=== PATIENT | female | born 1935 | race Caucasian/White ===

== ENCOUNTER 2017-12-22 18:05 | Inpatient (IN) | payer OTHER ==
[~2017-12-22] VITALS: Ht 162.6 cm; Wt 90.5 kg
[~2017-12-22 18:05] MED LIST: ASCORBIC ACID500 M3 PO; B-100 COMPLEX1 EACH PO; BLOOD THINNER PO; CALCIUM600 MG PO; CENTRUM COMPLE1 EACH PO; CHLORZOXAZONE500 MG PO; CORDARONE200 MG PO; CYMBALTA60 MG PO; DARVOCET-N 1001 EACH PO; ELIQUIS5 MG PO; FISH OIL 1,0001 EAC7 PO; FLEXERIL5 MG PO; LASIX40 MG PO; LIDODERM 5% P1 PATCH PO; LISINOPRIL20 MG PO; NORCO 10/3251 TABLET PO; NORCO 5/3251 TABLET PO; PRAVASTATIN SOD80 MG PO; PROBIOTIC1 EAC1 PO; PROZAC20 MG PO; RESTASIS 01 DROP/0.4 BOTH EYES; STRESSTABS1 EACH PO; TOPROL XL50 MG PO; ZESTRIL,PRINIVI20 MG PO; ZOLOFT50 MG PO
[2017-12-22 18:58] LABS: BASOPHIL (%) 0.4 % (0-1); EOSINOPHIL (%) 2.5 % (0-5); EOSINOPHIL COUNT 0.2 K/uL (0-0.3); HEMATOCRIT 32.5 % (36.0-46.0); IMMATURE GRANULOCYTE (%) 0.2 % (0.0-0.7); LYMPHOCYTE COUNT 1.4 K/uL (1.0-2.8); MCH 31.3 PG (29.0-34.0); MCHC 34.8 G/DL (30.0-36.0); MONOCYTE COUNT 1.1 K/uL (0-0.8); NEUTROPHIL (%) 66.9 % (45-76); NEUTROPHIL COUNT 5.6 K/uL (1.8-6.4); PLATELET COUNT 253 K/uL (156-360); RBC DIS.WIDTH-CV 12.9 % (11.8-14.6); WHITE BLOOD COUNT 8.4 K/uL (4.1-10.2)
[2017-12-22 19:07] LABS: CHLORIDE 99 mEq/L (99-109); POTASSIUM 4.6 mEq/L (3.7-5.4); SODIUM 134 mEq/L (136-147)
[2017-12-22 19:08] LABS: GLUCOSE 91 mg/dL (70-99); HEMOGLOBIN 11.3 G/DL (11.9-15.5); RED BLOOD COUNT 3.61 M/uL (3.80-5.20)
[2017-12-22 19:12] LABS: CREATININE 0.7 mg/dL (0.6-1.3); GFR ESTIMATE (CALCULATED) > 59 mL/min/
[2017-12-22 19:13] LABS: UREA NITROGEN (BUN) 25 mg/dL (9-23)
[2017-12-22] MEDS ORDERED: CORDARONE200 MG PO (19:30)
[2017-12-22] MEDS ORDERED: KEFLEX500 MG PO (19:33)
[2017-12-22] MEDS ORDERED: CYMBALTA20 MG PO (19:33)
[2017-12-22] MEDS ORDERED: BACTROBAN OINTM22 GM TP (19:34)
[2017-12-22] MEDS ORDERED: STRESS B-COMPL1 EACH PO (19:35)
[2017-12-22] MEDS ORDERED: METOLAZONE5 MG PO (19:35)
[2017-12-22] MEDS ORDERED: LEG CRAMPS PO (19:36)
[2017-12-22] MEDS ORDERED: ZANAFLEX4 M1 PO (19:37)
[2017-12-23 00:41] VITALS: BP 182/78
[2017-12-23 05:54] LABS: BASOPHIL (%) 0.5 % (0-1); EOSINOPHIL (%) 3.5 % (0-5); EOSINOPHIL COUNT 0.2 K/uL (0-0.3); HEMATOCRIT 29.8 % (36.0-46.0); HEMOGLOBIN 9.9 G/DL (11.9-15.5); IMMATURE GRANULOCYTE (%) 0.3 % (0.0-0.7); LYMPHOCYTE (%) 24.5 % (15-42); LYMPHOCYTE COUNT 1.6 K/uL (1.0-2.8); MCH 30.7 PG (29.0-34.0); MCHC 33.2 G/DL (30.0-36.0); MCV 92.3 FL (83-99); MONOCYTE (%) 14.2 % (3-12); MONOCYTE COUNT 0.9 K/uL (0-0.8); NEUTROPHIL COUNT 3.8 K/uL (1.8-6.4); PLATELET COUNT 247 K/uL (156-360); RBC DIS.WIDTH-SD 43.4 % (39-53); RED BLOOD COUNT 3.23 M/uL (3.80-5.20); WHITE BLOOD COUNT 6.6 K/uL (4.1-10.2)
[2017-12-23 06:22] LABS: CHLORIDE 102 MEQ/L (99-109); CREATININE 0.7 MG/DL (0.6-1.3); GFR ESTIMATE (CALCULATED) > 59 mL/min/; GLUCOSE 105 mg/dL (70-99); POTASSIUM 4.1 MEQ/L (3.7-5.4); SODIUM 135 MEQ/L (136-147); UREA NITROGEN (BUN) 19 mg/dL (9-23)
[2017-12-23 08:00] VITALS: BP 143/73
[2017-12-23 10:13] LABS: APPEARANCE SL.HAZY ((CLEAR)); BILIRUBIN NEGATIVE; BLOOD SMALL; COLOR YELLOW ((YELLOW)); GLUCOSE (STRIP) NEGATIVE; KETONES NEGATIVE; LEUKOCYTES NEGATIVE; NITRITE NEGATIVE; PROTEIN (STRIP) 30; SPECIFIC GRAVITY 1.017 (1.000-1.030); UROBILINOGEN 0.2 MG/DL (0.2-1.0)
[2017-12-23 10:28] LABS: BACTERIA RARE /HPF; EPITHELIAL CELLS RARE /HPF; HYALINE CASTS 0-5 /LPF; MUCUS TRACE /LPF; RED BLOOD CELLS 40-50 /HPF (0-5); UCUL ADDED? NO; WHITE BLOOD CELLS 0-5 /HPF (0-5)
[2017-12-23 11:43] VITALS: BP 161/68
[2017-12-23 15:30] VITALS: BP 134/59
[2017-12-23 19:56] VITALS: BP 187/79
[2017-12-23 23:49] VITALS: BP 146/65
[2017-12-24 06:37] LABS: BASOPHIL (%) 0.4 % (0-1); EOSINOPHIL (%) 2.6 % (0-5); EOSINOPHIL COUNT 0.2 K/uL (0-0.3); HEMATOCRIT 29.9 % (36.0-46.0); HEMOGLOBIN 9.8 G/DL (11.9-15.5); IMMATURE GRANULOCYTE (%) 0.4 % (0.0-0.7); LYMPHOCYTE (%) 19.9 % (15-42); LYMPHOCYTE COUNT 1.4 K/uL (1.0-2.8); MCH 30.2 PG (29.0-34.0); MCHC 32.8 G/DL (30.0-36.0); MONOCYTE (%) 11.9 % (3-12); MONOCYTE COUNT 0.8 K/uL (0-0.8); NEUTROPHIL (%) 64.8 % (45-76); NEUTROPHIL COUNT 4.5 K/uL (1.8-6.4); PLATELET COUNT 257 K/uL (156-360); RBC DIS.WIDTH-CV 13.2 % (11.8-14.6); RBC DIS.WIDTH-SD 44.8 % (39-53); RED BLOOD COUNT 3.25 M/uL (3.80-5.20)
[2017-12-24 07:02] LABS: ALBUMIN 2.9 G/DL (3.2-4.8); ALKALINE PHOSPHATASE 50 IU/L (3-129); ALT (GPT) 19 IU/L (3-49); AST (GOT) 19 IU/L (2-34); CHLORIDE 104 MEQ/L (99-109); CREATININE 0.6 MG/DL (0.6-1.3); GFR ESTIMATE (CALCULATED) > 59 mL/min/; GLUCOSE 112 mg/dL (70-99); POTASSIUM 4.2 MEQ/L (3.7-5.4); SODIUM 137 MEQ/L (136-147); TOTAL BILIRUBIN 0.6 MG/DL (0.0-1.0); TOTAL PROTEIN 5.8 G/DL (6.4-8.3); UREA NITROGEN (BUN) 16 mg/dL (9-23)
[2017-12-24 07:30] VITALS: BP 155/67
[2017-12-24 09:24] LABS: IMM.RETIC FRACTION 10.3 % (3-19); RETIC HGB EQUIVALENT 31.1 (28-36); RETICULOCYTE COUNT 1.3 % (0.5-1.8)
[2017-12-24 09:36] LABS: FERRITIN 98 NG/ML (10-291)
[2017-12-24 10:36] LABS: FOLIC ACID (FOLATE) > 22.0 NG/ML (5.0-22.0)
[2017-12-24 11:00] VITALS: BP 167/72
[2017-12-24 11:05] LABS: IRON 34 MCG/DL (35-150); TRANSFERRIN SATUR. 16 % (20-55)
[2017-12-24 12:14] LABS: HEMOGLOBIN A1c (GLYCOHEMOGLOB) 5.9 % (Below 5.7)
[2017-12-24 15:30] VITALS: BP 151/69
[2017-12-24 19:23] VITALS: BP 145/65
[2017-12-25 03:28] VITALS: BP 139/63
[2017-12-25 05:20] LABS: BASOPHIL (%) 0.4 % (0-1); EOSINOPHIL (%) 0.8 % (0-5); EOSINOPHIL COUNT 0.1 K/uL (0-0.3); HEMATOCRIT 30.5 % (36.0-46.0); IMMATURE GRANULOCYTE (%) 0.3 % (0.0-0.7); LYMPHOCYTE (%) 12.8 % (15-42); LYMPHOCYTE COUNT 1.4 K/uL (1.0-2.8); MCH 30.3 PG (29.0-34.0); MCHC 32.8 G/DL (30.0-36.0); MCV 92.4 FL (83-99); MONOCYTE (%) 11.5 % (3-12); MONOCYTE COUNT 1.2 K/uL (0-0.8); NEUTROPHIL (%) 74.2 % (45-76); NEUTROPHIL COUNT 7.8 K/uL (1.8-6.4); PLATELET COUNT 266 K/uL (156-360); RBC DIS.WIDTH-CV 13.2 % (11.8-14.6); RBC DIS.WIDTH-SD 45.4 % (39-53); WHITE BLOOD COUNT 10.5 K/uL (4.1-10.2)
[2017-12-25 05:53] LABS: ALBUMIN 2.9 G/DL (3.2-4.8); ALKALINE PHOSPHATASE 58 IU/L (3-129); ALT (GPT) 18 IU/L (3-49); AST (GOT) 20 IU/L (2-34); CHLORIDE 101 MEQ/L (99-109); CREATININE 0.7 MG/DL (0.6-1.3); GFR ESTIMATE (CALCULATED) > 59 mL/min/; GLUCOSE 126 mg/dL (70-99); POTASSIUM 4.3 MEQ/L (3.7-5.4); SODIUM 132 MEQ/L (136-147); TOTAL BILIRUBIN 0.7 MG/DL (0.0-1.0); TOTAL PROTEIN 5.8 G/DL (6.4-8.3); UREA NITROGEN (BUN) 16 mg/dL (9-23)
[2017-12-25 07:25] VITALS: BP 131/61
[2017-12-25] MEDS ORDERED: DOXYCYCLINE HY100 M3 PO (11:47)
[2017-12-25] MEDS ORDERED: LISINOPRIL20 MG PO (11:47)
== END 2017-12-25 15:41 | disposition home health service (06) | DRG 603 ==
LOC: EME 18:05 → EDOF 22:30 → 5EAST 22:30 → ENRESERV 22:33 → 5EAST 23:30
PROVIDERS: Hospitalist; Physician Assistant
DX: L03.116 Cellulitis of left lower limb (principal); E11.51 Type 2 diabetes mellitus with diabetic peripheral angiopathy without gangrene; I10 Essential (primary) hypertension; E78.5 Hyperlipidemia, unspecified; M79.7 Fibromyalgia; I48.0 Paroxysmal atrial fibrillation; Z79.01 Long term (current) use of anticoagulants; Z86.73 Personal history of transient ischemic attack (TIA), and cerebral infarction without residual deficits; E66.9 Obesity, unspecified; Z68.34 Body mass index [BMI] 34.0-34.9, adult; L84 Corns and callosities; J44.9 Chronic obstructive pulmonary disease, unspecified; G47.33 Obstructive sleep apnea (adult) (pediatric); M81.0 Age-related osteoporosis without current pathological fracture; Z89.419 Acquired absence of unspecified great toe; I89.0 Lymphedema, not elsewhere classified; D64.9 Anemia, unspecified; E11.42 Type 2 diabetes mellitus with diabetic polyneuropathy; E11.610 Type 2 diabetes mellitus with diabetic neuropathic arthropathy; E46 Unspecified protein-calorie malnutrition; I25.10 Atherosclerotic heart disease of native coronary artery without angina pectoris; N39.41 Urge incontinence; R31.29 Other microscopic hematuria; S80.811A Abrasion, right lower leg, initial encounter; I87.8 Other specified disorders of veins
CPT/HCPCS: 73590; 73630; 80048; 80053; 80202; 81003; 82607; 82728; 82746; 82948; 83036; 83540; 83605; 84466; 85025; 85046; 87040; 87070; 87075; 87205; 93971; 99281; 99285; A6212; J0360; J0692; J3370; J7030

== ENCOUNTER 2018-02-27 15:18 | Emergency (ER) | payer OTHER ==
[~2018-02-27] VITALS: Ht 160 cm; Wt 91.8 kg
[~2018-02-27 15:18] MED LIST changes: +BACTROBAN OINTM22 GM TP; +CYMBALTA20 MG PO; +DOXYCYCLINE HY100 M3 PO; +KEFLEX500 MG PO; +LEG CRAMPS PO; +METOLAZONE5 MG PO; +STRESS B-COMPL1 EACH PO; +ZANAFLEX4 M1 PO
[2018-02-27 17:32] LABS: HEMATOCRIT 37.4 % (36.0-46.0); HEMOGLOBIN 12.8 G/DL (11.9-15.5); MCH 30.5 PG (29.0-34.0); MCHC 34.2 G/DL (30.0-36.0); PLATELET COUNT 240 K/uL (156-360); RBC DIS.WIDTH-CV 12.9 % (11.8-14.6); RBC DIS.WIDTH-SD 42.1 % (39-53); WHITE BLOOD COUNT 8.2 K/uL (4.1-10.2)
[2018-02-27 17:45] LABS: ALBUMIN 3.9 g/dL (3.2-4.8); CHLORIDE 102 mEq/L (99-109); SODIUM 141 mEq/L (136-147)
[2018-02-27 17:47] LABS: GLUCOSE 121 mg/dL (70-99)
[2018-02-27 17:48] LABS: TOTAL PROTEIN 7.9 g/dL (6.4-8.3)
[2018-02-27 17:51] LABS: ALKALINE PHOSPHATASE 77 IU/L (3-129); CREATININE 0.7 mg/dL (0.6-1.3); GFR ESTIMATE (CALCULATED) > 59 mL/min/
[2018-02-27 17:52] LABS: UREA NITROGEN (BUN) 12 mg/dL (9-23)
[2018-02-27 17:53] LABS: AST (GOT) 22 IU/L (2-34); ERTH.SED.RATE 50 MM/HR (0-30)
[2018-02-27 17:54] LABS: ALT (GPT) 21 IU/L (3-49)
[2018-02-27 18:20] LABS: C-REACTIVE PROTEIN 63.6 MG/L (0-10)
[2018-02-27] MEDS ORDERED: DOXYCYCLINE HY100 MG PO (18:45)
[2018-02-27 19:11] VITALS: BP 171/55
== END 2018-02-27 19:24 | disposition home or self-care (01) ==
LOC: EME 15:18
PROVIDERS: Nurse Practitioner Family
DX: E11.621 Type 2 diabetes mellitus with foot ulcer (principal); L97.519 Non-pressure chronic ulcer of other part of right foot with unspecified severity; T84.213A Breakdown (mechanical) of internal fixation device of bones of foot and toes, initial encounter; Z16.19 Resistance to other specified beta lactam antibiotics; E78.5 Hyperlipidemia, unspecified; F32.9 Major depressive disorder, single episode, unspecified; F41.9 Anxiety disorder, unspecified; I10 Essential (primary) hypertension; M79.7 Fibromyalgia; Z88.5 Allergy status to narcotic agent; Z85.828 Personal history of other malignant neoplasm of skin; Z88.6 Allergy status to analgesic agent
CPT/HCPCS: 73630; 80053; 85027; 85651; 86140; 87040; 99281; 99284